=== PATIENT | male | born 1975 | race African-American/Black ===

== ENCOUNTER 2019-01-06 20:51 | Emergency (ER) | payer SELFPAY ==
[~2019-01-06] VITALS: Ht 167.6 cm; Wt 68.0 kg
[~2019-01-06 20:51] MED LIST: PHENERGAN25 M1 PO; PROTONIX40 MG PO; VICODIN 5-5001 EACH PO
--- NOTE | 2019-01-06 21:01 | NUR ---
ED Nurse Note PT WALKED IN C/O LEFT EYE PAIN, PT STATES HE WORKS AT [employer] AND A METAL CHIP ACCIDENTALLY GOT INTO HIS EYE 3DAYS AGO AND HAVING PAIN SINCE THEN. RIGHT EYE BLIND.
[2019-01-06 21:02] VITALS: BP 133/84
[2019-01-06] MEDS ORDERED: Tetracaine 0.5% Opth 4ml Soln LEFT EYE ONE (21:15)
[2019-01-06] MEDS ORDERED: Fluorescein Strips LEFT EYE ONE (21:15)
--- NOTE | 2019-01-06 22:14 | NUR ---
ER Nurse Note: Pt returned from CT; awaiting results. Pt stable, no signs of distress. All orders completed per ERMD orders. All safety measures met; will continue to montior.
--- NOTE | 2019-01-06 22:45 | Diagnostic Imaging Report ---
EXAM: CT Orbits Without Intravenous Contrast CLINICAL HISTORY: TRAUMA. Remote history of trauma to the right eye. Patient now presents with trauma to the left eye and possible foreign body. TECHNIQUE: Axial computed tomography images of the orbits without intravenous contrast. CTDI is 28 mGy and DLP is 379 mGy-cm. One or more of the following dose reduction techniques were used: automated exposure control, adjustment of the mA and/or kV according to patient size, use of iterative reconstruction technique. COMPARISON: No relevant prior studies available. 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 No radiopaque foreign body is detected within the left globe. Sinuses: Small mucosal polyps versus retention cysts are seen at the medial left maxillary sinus. No air-fluid levels. Bones/joints: No acute fracture. Soft tissues: Unremarkable. IMPRESSION: 1. There is no evidence for acute fracture. 2. No radiopaque foreign body in the left globe. 3. 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
[2019-01-06] MEDS ORDERED: GENTAMICIN SUL3.5 GM OP (22:50)
[2019-01-06 22:56] VITALS: BP 128/82
--- NOTE | 2019-01-06 22:56 | NUR ---
ER Nurse Note: Pt seen, treated, medically cleared for discharge by ERMD. Discharge instuctions and prescriptions given with repeat verbalization by pt. All orders completed per ERMD orders. Pt a&ox4, VSS, no signs of distress. Pt denies pain. ID band removed. Pt ambulaitory with steady gait, left with all belongings, left with own transportation.
--- NOTE | 2019-01-07 01:19 | Emergency Room Report ---
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 Denies any headache denies any chest pain He had a foreign body sensation on the left side Denies any visual change with it denies any vomiting or diarrhea Allergies: Coded Allergies: No Known Allergies (Unverified , 01/06/19) Patient History Past Medical History: see triage record Pertinent Family History: none Reviewed Nursing Documentation: PMH: Agreed; PSxH: Agreed Nursing Documentation-PMH Past Medical History: No Stated History Review of Systems All Other Systems: negative except mentioned in HPI Physical Exam Vital Signs Date Time Temp Pulse Resp B/P (MAP) Pulse Ox O2 Delivery O2 Flow Rate FiO2 01/06/19 20:57 98.4 80 18 133/84 (100) 97 Room Air Sp02 EP Interpretation: reviewed, normal General Appearance: well appearing, no apparent distress Head: normocephalic, atraumatic Eyes: bilateral eye other - Blind on the right side, left eye shows reactive pupil extraocular motor intact ENT: normal pharynx, no angioedema Neck: supple Respiratory: lungs clear, normal breath sounds, no retraction, no accessory muscle use Cardiovascular #1: regular rate, rhythm Gastrointestinal: non tender, soft Musculoskeletal: normal inspection Neurologic: alert, oriented x3 Skin: normal color, no rash Lymphatic: no adenopathy Medical Decision Making Diagnostic Impression: Primary Impression: eye foreign body ER Course Patient had fluorescein staining of the left eye performed there is no obvious uptake No obvious ring Given the history CT of the orbits were obtained no obvious foreign body is seen Patient would benefit from close outpatient ophthalmology follow-up given his complaints and the fact that he is blind in the right eye Patient provided with antibiotic ointment and requires close follow-up CT/MRI/US Diagnostic Results CT/MRI/US Diagnostic Results : Impression CT orbitsIMPRESSION: 1. There is no evidence for acute fracture. 2. No radiopaque foreign body in the left globe. 3. 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 Last Vital Signs Date Time Temp Pulse Resp B/P (MAP) Pulse Ox O2 Delivery O2 Flow Rate FiO2 01/06/19 22:56 98.4 76 18 128/82 97 Room Air Status: improved Disposition: HOME, SELF-CARE Condition: Improved Scripts Gentamicin Sulfate* (GENTAMICIN SULFATE*) 3.5 Gm Oint...g. 3.5 GM OP BID for 7 Days, GM Prov: Carol Nolan DO 01/06/19 Referrals: NOT CHOSEN IPA/,REFERRING (PCP) [facility] Patient Instructions: Eye Foreign Body, [id number] Additional Instructions: Patient is provided with the discharge instructions notified to follow up with primary doctor in the next 2-3 days otherwise return to the er with any worsening symptoms. Please note that this report is being documented using DRAGON technology. This can lead to erroneous entry secondary to incorrect interpretation by the dictating instrument. Carol Nolan DO Jan 07, 2019 01:19
== END 2019-01-06 22:56 | disposition home or self-care (01) ==
LOC: EMR 21:08
DX: T15.92XA Foreign body on external eye, part unspecified, left eye, initial encounter (principal); H54.61 Unqualified visual loss, right eye, normal vision left eye; W20.8XXA Other cause of strike by thrown, projected or falling object, initial encounter; Y92.9 Unspecified place or not applicable
CPT/HCPCS: 70480; 99284